=== PATIENT | male | born 1975 | race Two or more races ===

== ENCOUNTER 2018-07-26 15:18 | Emergency (ER) | payer SELFPAY ==
[~2018-07-26] VITALS: Ht 177.8 cm; Wt 85.7 kg
[2018-07-26 15:36] LABS: BILIRUBIN,URINE NEGATIVE (NEG); CLARITY,URINE CLEAR; COLOR,URINE YELLOW; NITRITE,URINE NEGATIVE (NEG); PH,URINE 5.5; PROTEIN,URINE NEGATIVE (NEG-TRACE); UROBILINOGEN,URINE 0.2 mg/dL (0.2 mg/dL)
[2018-07-26 15:42] LABS: BACTERIA,URINE 0 /HPF (0-FEW); RBC,URINE RARE /HPF (0-2); SQUAMOUS EPITHELIAL CELL,UR FEW /LPF; WBC,URINE RARE /HPF (0-4)
[2018-07-26] MEDS ORDERED: fentaNYL PF VIAL 100 MCG/2 ML VIAL IV ONE (15:45)
[2018-07-26] MEDS ORDERED: IV NORMAL SALINE 1000ML BAG 1,000 ML IV ONE (15:45)
[2018-07-26 15:49] LABS: BASO # 0.1 x10^3/uL (0.0-0.2); BASO % 1 % (0-3); EOS # 0.1 x10^3/uL (0.0-0.7); EOS % 2 % (0-3); HEMATOCRIT 42.6 % (39.0-53.0); HEMOGLOBIN 15.1 g/dL (13.0-17.5); LYMPH # 1.9 x10^3/uL (1.0-4.8); LYMPH % 28 % (24-48); MEAN CORPUSCULAR HEMOGLOBIN 30 pg (25-35); MEAN CORPUSCULAR HGB CONC 35 g/dL (31-37); MEAN CORPUSCULAR VOLUME 85 fL (79-100); MONO # 0.6 x10^3/uL (0.0-1.1); MONO % 9 % (0-9); NEUT # 4.1 x10^3uL (1.8-7.7); NEUT % 60 % (31-73); PLATELET COUNT 282 x10^3/uL (140-400); RED BLOOD COUNT 4.99 x10^6/uL (4.30-5.70); RED CELL DISTRIBUTION WIDTH 13.4 % (11.5-14.5); WHITE BLOOD COUNT 6.9 x10^3/uL (4.0-11.0)
[2018-07-26 15:58] VITALS: BP 130/88
[2018-07-26] MEDS ORDERED: IOHEXOL 300 MG/ML 100ML VIAL. IV ONE ×2 (16:00)
[2018-07-26] MEDS ORDERED: CONTRAST GIVEN. MC PRN (16:00)
[2018-07-26 16:04] LABS: CALCIUM 9.2 mg/dL (8.5-10.1); GFR 80.8; POTASSIUM 3.6 mmol/L (3.5-5.1)
[2018-07-26 16:09] LABS: ALBUMIN 3.8 g/dL (3.4-5.0); TOTAL BILIRUBIN 0.5 mg/dL (0.2-1.0); TOTAL PROTEIN 7.8 g/dL (6.4-8.2)
--- NOTE | 2018-07-26 16:47 | RAD ---
EXAM: CT Abdomen and Pelvis with IV contrast CLINICAL HISTORY: Right upper abdominal pain COMPARISON: CT 10/26/2012 TECHNIQUE: Helical CT of the abdomen and pelvis was performed following the administration of intravenous contrast. Axial, coronal and sagittal reformatted images were generated. PQRS compliance statement - One or more of the following individualized dose reduction techniques were utilized for this study: 1. Automated exposure control 2. Adjustment of the mA and/or kV according to patient size 3. Use of iterative reconstruction technique FINDINGS: Lower chest: Lung bases are clear Abdomen and Pelvis: No focal liver lesion. Gallbladder is unremarkable. No biliary ductal dilatation. Spleen is unremarkable. Adrenal glands and pancreas are unremarkable. Symmetric nephrograms. No focal renal lesion. No hydronephrosis. No hydroureter. Aorta is normal in caliber. Focal fat infiltration is seen in the right ventral abdomen (images [id number]). This may represent omental infarct or less likely epiploic appendagitis as this is somewhat distant to the colon. Moderate colonic stool content is seen. The appendix is normal. No abnormal small or large bowel dilatation. Fat-containing periumbilical hernia is seen. No abdominal or pelvic ascites or lymphadenopathy. Decompressed bladder is otherwise unremarkable. Bones: Spiculated sclerotic focus within the right iliac bone likely bone island. Multilevel degenerative changes of the spine are seen. IMPRESSION: 1. Nonspecific focal infiltration of the ventral abdominal fat in the right mid abdomen just lateral to the umbilicus may be seen with omental infarct or less likely epiploic appendagitis. 2. The gallbladder, pancreas and appendix are grossly unremarkable. 3. No evidence for bowel obstruction. Electronically signed by: Marco Antonio Garcia MD (07/26/2018 4:43 PM) [facility]
--- NOTE | 2018-07-26 17:04 | PHYS DOC ---
Past Medical History Past Medical History: No Pertinent History Past Surgical History: No Surgical History Alcohol Use: Occasionally Drug Use: None Adult General Chief Complaint Chief Complaint: ABDOMINAL PAIN [facility] HPI Patient is a 43 year old male who presents with abdominal pain on the right mid side since yesterday morning. He denies radiation the pain. He states is a 2 out of 10 and is a dull ache. Patient states his last bowel movement was yesterday and was normal. Patient states the pain started after he ate chicken and bread for dinner. Patient denies diarrhea, nausea, vomiting, fever, dysuria or chest pain, shortness of air. Review of Systems Review of Systems Constitutional: Denies fever or chills [] Eyes: Denies change in visual acuity, redness, or eye pain [] HENT: Denies nasal congestion or sore throat [] Respiratory: Denies cough or shortness of breath [] Cardiovascular: No additional information not addressed in HPI [] GI: Denies abdominal pain, nausea, vomiting, bloody stools or diarrhea [] : Denies dysuria or hematuria [] Musculoskeletal: Denies back pain or joint pain [] Integument: Denies rash or skin lesions [] Neurologic: Denies headache, focal weakness or sensory changes [] Endocrine: Denies polyuria or polydipsia [] All other systems were reviewed and found to be within normal limits, except as documented in this note. Current Medications Current Medications Current Medications Medications (Trade) Dose Ordered Sig/[facility] Start Time Stop Time Status Last Admin Dose Admin Fentanyl Citrate (Fentanyl 2ml Vial) 50 mcg 1X ONCE 07/26/18 15:45 07/26/18 15:52 DC Info (CONTRAST GIVEN -- Rx MONITORING) 1 each PRN DAILY PRN 07/26/18 16:00 07/26/18 17:43 DC Iohexol (Omnipaque 300 Mg/ml) 75 ml 1X ONCE 07/26/18 16:00 07/26/18 16:06 DC Sodium Chloride 1,000 ml @ 1,000 mls/hr 1X ONCE 07/26/18 15:45 07/26/18 16:44 DC 07/26/18 16:07 1,000 MLS/HR Allergies Allergies Allergies Coded Allergies Type Severity Reaction Last Updated Verified No Known Drug Allergies 07/26/18 No Physical Exam Physical Exam Constitutional: Well developed, well nourished, no acute distress, non-toxic appearance. [] HENT: Normocephalic, atraumatic, bilateral external ears normal, oropharynx moist, no oral exudates, nose normal. [] Eyes: PERRLA, EOMI, conjunctiva normal, no discharge. [] Neck: Normal range of motion, no tenderness, supple, no stridor. [] Cardiovascular:Heart rate regular rhythm, no murmur [] Lungs & Thorax: Bilateral breath sounds clear to auscultation [] Abdomen: Bowel sounds normal, soft, no tenderness, no masses, no pulsatile masses. [] Skin: Warm, dry, no erythema, no rash. [] Back: No tenderness, no CVA tenderness. [] Extremities: No tenderness, no cyanosis, no clubbing, ROM intact, no edema. [] Neurologic: Alert and oriented X 3, normal motor function, normal sensory function, no focal deficits noted. [] Psychologic: Affect normal, judgement normal, mood normal. [] Current Patient Data Vital Signs Vital Signs Date Time Temp Pulse Resp B/P (MAP) Pulse Ox O2 Delivery O2 Flow Rate FiO2 07/26/18 15:58 58 130/88 (102) 97 Room Air 07/26/18 15:23 98.1 14 98.1 Lab Values Laboratory Tests Test 07/26/18 15:23 07/26/18 15:40 Urine Collection Type Unknown Urine Color Yellow Urine Clarity Clear Urine pH 5.5 Urine Specific [place] 1.025 Urine Protein Negative mg/dL (NEG-TRACE) Urine Glucose (UA) Negative mg/dL (NEG) Urine Ketones (Stick) Negative mg/dL (NEG) Urine Blood Trace (NEG) Urine Nitrite Negative (NEG) Urine Bilirubin Negative (NEG) Urine Urobilinogen Dipstick 0.2 mg/dL (0.2 mg/dL) Urine Leukocyte Esterase Negative (NEG) Urine RBC Rare /HPF (0-2) Urine WBC Rare /HPF (0-4) Urine Squamous Epithelial Cells Few /LPF Urine Bacteria 0 /HPF (0-FEW) Urine Mucus Marked /LPF White Blood Count 6.9 x10^3/uL (4.0-11.0) Red Blood Count 4.99 x10^6/uL (4.30-5.70) Hemoglobin 15.1 g/dL (13.0-17.5) Hematocrit 42.6 % (39.0-53.0) Mean Corpuscular Volume 85 fL (79-100) Mean Corpuscular Hemoglobin 30 pg (25-35) Mean Corpuscular Hemoglobin Concent 35 g/dL (31-37) Red Cell Distribution Width 13.4 % (11.5-14.5) Platelet Count 282 x10^3/uL (140-400) Neutrophils (%) (Auto) 60 % (31-73) Lymphocytes (%) (Auto) 28 % (24-48) Monocytes (%) (Auto) 9 % (0-9) Eosinophils (%) (Auto) 2 % (0-3) Basophils (%) (Auto) 1 % (0-3) Neutrophils # (Auto) 4.1 x10^3uL (1.8-7.7) Lymphocytes # (Auto) 1.9 x10^3/uL (1.0-4.8) Monocytes # (Auto) 0.6 x10^3/uL (0.0-1.1) Eosinophils # (Auto) 0.1 x10^3/uL (0.0-0.7) Basophils # (Auto) 0.1 x10^3/uL (0.0-0.2) Sodium Level 140 mmol/L (136-145) Potassium Level 3.6 mmol/L (3.5-5.1) Chloride Level 103 mmol/L (98-107) Carbon Dioxide Level 27 mmol/L (21-32) Anion Gap 10 (6-14) Blood Urea Nitrogen 12 mg/dL (8-26) Creatinine 1.0 mg/dL (0.7-1.3) Estimated GFR (Cockcroft-Gault) 80.8 BUN/Creatinine Ratio 12 (6-20) Glucose Level 103 mg/dL (70-99) H Calcium Level 9.2 mg/dL (8.5-10.1) Total Bilirubin 0.5 mg/dL (0.2-1.0) Aspartate Amino Transferase (AST) 20 U/L (15-37) Alanine Aminotransferase (ALT) 37 U/L (16-63) Alkaline Phosphatase 75 U/L (46-116) Total Protein 7.8 g/dL (6.4-8.2) Albumin 3.8 g/dL (3.4-5.0) Albumin/Globulin Ratio 1.0 (1.0-1.7) Lipase 85 U/L (73-393) Laboratory Tests 07/26/18 15:40 Laboratory Tests 07/26/18 15:40 EKG EKG [] Radiology/Procedures Radiology/Procedures [] Impressions: [facility] [address] [place] [address] IMAGING REPORT Signed PATIENT: MINGO PIMENTEL ACCOUNT: [id number] : 1975 LOCATION: ER AGE: 43 SEX: M EXAM STATUS: REG ER ORD. PHYSICIAN: OSKAR HENDERSON APRN REASON: rigth upper/ mid abd pain PROCEDURE: CT ABD PELV W/ IV CONTRST ONLY EXAM: CT Abdomen and Pelvis with IV contrast CLINICAL HISTORY: Right upper abdominal pain COMPARISON: CT 10/26/2012 TECHNIQUE: Helical CT of the abdomen and pelvis was performed following the administration of intravenous contrast. Axial, coronal and sagittal reformatted images were generated. PQRS compliance statement - One or more of the following individualized dose reduction techniques were utilized for this study: 1. Automated exposure control 2. Adjustment of the mA and/or kV according to patient size 3. Use of iterative reconstruction technique FINDINGS: Lower chest: Lung bases are clear Abdomen and Pelvis: No focal liver lesion. Gallbladder is unremarkable. No biliary ductal dilatation. Spleen is unremarkable. Adrenal glands and pancreas are unremarkable. Symmetric nephrograms. No focal renal lesion. No hydronephrosis. No hydroureter. Aorta is normal in caliber. Focal fat infiltration is seen in the right ventral abdomen (images 46-51). This may represent omental infarct or less likely epiploic appendagitis as this is somewhat distant to the colon. Moderate colonic stool content is seen. The appendix is normal. No abnormal small or large bowel dilatation. Fat-containing periumbilical hernia is seen. No abdominal or pelvic ascites or lymphadenopathy. Decompressed bladder is otherwise unremarkable. Bones: Spiculated sclerotic focus within the right iliac bone likely bone island. Multilevel degenerative changes of the spine are seen. IMPRESSION: 1. Nonspecific focal infiltration of the ventral abdominal fat in the right mid abdomen just lateral to the umbilicus may be seen with omental infarct or less likely epiploic appendagitis. 2. The gallbladder, pancreas and appendix are grossly unremarkable. 3. No evidence for bowel obstruction. Electronically signed by: Marco Antonio Garcia MD (07/26/2018 4:43 PM) [facility] DICTATED and SIGNED BY: MARCO ANTONIO GARCIA MD DATE: 07/26/18 1634 Course & Med Decision Making Course & Med Decision Making Patient is a 43 year old male who presents with abdominal pain on the right mid side since yesterday morning. He denies radiation the pain. He states is a 2 out of 10 and is a dull ache. Patient states his last bowel movement was yesterday and was normal. Patient states the pain started after he ate chicken and bread for dinner. Patient denies diarrhea, nausea, vomiting, fever, dysuria or chest pain, shortness of air. Alert and oriented. Skin pink warm and dry. Mucous membranes are moist. Abdomen is tender in the right mid side with pushing. There is no rebound tenderness. Heart rate regular without murmur. Lungs are clear to auscultation all lobes. Afebrile. Urinalysis does show slight blood but no infection. His CT abdomen pelvis shows no acute findings. Patient was giving a bag of normal saline and pain medication. Patient is sent home and to follow-up with his primary care provider. Patient return for fever, increased abdominal pain, nausea vomiting. Dragon Disclaimer Dragon Disclaimer This electronic medical record was generated, in whole or in part, using a voice recognition dictation system. Departure Departure Impression: Primary Impression: Abdominal pain Disposition: HOME, SELF-CARE Condition: STABLE Referrals: NON,STAFF (PCP) Patient Instructions: Abdominal Pain (Nonspecific) Additional Instructions: RETURN FOR FEVER, INCREASED ABDOMINAL PAIN, NAUSEA, VOMITING. FOLLOW UP WITH PRIMARY CARE. Scripts Hydrocodone/Apap 5-325 (NORCO 5-325 TABLET) 1 Each Tablet 1 TAB PO PRN Q6HRS PRN for PAIN, #10 TAB 0 Refills Prov: OSKAR HENDERSON APRN 07/26/18 Problem Qualifiers Primary Impression: Abdominal pain Abdominal location: right lower quadrant Qualified Codes: R10.31 - Right lower quadrant pain OSKAR HENDERSON APRN Jul 26, 2018 17:04
[2018-07-26] MEDS ORDERED: HYDR-3164 PO (17:19)
== END 2018-07-26 17:40 | disposition home or self-care (01) ==
LOC: ER 15:18
DX: R10.31 Right lower quadrant pain (principal)
CPT/HCPCS: 36415; 74177; 80053; 81001; 83690; 85025; 99284; J7030; Q9967